=== PATIENT | female | born 1995 | race Hispanic/Latino ===

== ENCOUNTER 2018-10-10 14:42 | Outpatient (CLI) | payer OTHER ==
--- NOTE | 2018-10-10 18:47 | ULT ---
TRANSABDOMINAL PELVIC ULTRASOUND WITH PATEL SCALE AND COLOR FLOW AND SPECTRAL DOPPLER IMAGING: Date: 10/10/18 HISTORY: Heavy menstruation. FINDINGS: The uterus measures 8.0 x 3.0 x 3.6 cm, without focal mass or endometrial fluid. Endometrium measures 8.0 mm in thickness. The right ovary measures 2.8 x 1.8 x 1.6 cm. The left ovary measures 2.5 x 1.9 x 2.1 cm. Flow is dem onstrated to both ovaries. There is a 1.3 cm cyst in the left ovary. No free fluid is seen in the cul-de-sac. IMPRESSION: Unremarkable exam. POS: OFF
== END 2018-10-10 14:43 | disposition home or self-care (01) ==
LOC: SCSULT 14:42
PROVIDERS: ATTEND Family Medicine
DX: N92.0 Excessive and frequent menstruation with regular cycle (principal)
CPT/HCPCS: 76856; 93976

== ENCOUNTER 2018-10-12 16:28 | Emergency (ER) | payer OTHER ==
--- NOTE | 2018-10-12 18:47 | RAD ---
RIGHT FOOT THREE VIEWS: 10/12/18 HISTORY: Right foot pain. FINDINGS/IMPRESSION: No fracture, dislocation or bony destruction is identified. POS: RAYRAY
== END 2018-10-12 17:18 | disposition home or self-care (01) ==
LOC: ERS 16:28
DX: M79.671 Pain in right foot (principal); X50.0XXA Overexertion from strenuous movement or load, initial encounter